=== PATIENT | male | born 2000 | race Caucasian/White ===

== ENCOUNTER 2025-03-11 07:54 | Emergency (ER) | payer OTHER, SELFPAY ==
[2025-03-11 07:54] VITALS: BP 144/70; PULSE 82; RESP 18; TEMP 36.7; O2SAT 97
--- NOTE | 2025-03-11 07:59 | ED.DENTAL ---
HPI - Dental/Oral General Chief complaint: Dental/Oral Stated complaint: dental pain Time Seen by Provider: 03/11/25 07:59 Source: patient Mode of arrival: ambulatory Limitations: no limitations History of Present Illness HPI Narrative: 24-year-old male presents to the ED with right upper dental pain with swelling of the upper jaw. No fever or chills. He has had this pain for the past 3 days. He is scheduled to see a dentist in 2 days. MD Complaint: tooth pain Location: Tooth # (5) Onset (ago): day(s) ( Three days) Duration: constant Severity: severe Relieving factors: nothing Exacerbating factors: nothing Context: history of dental caries Treatment prior to arrival: none Related Data Allergies Allergy/AdvReac Type Severity Reaction Status Date / Time No Known Allergies Allergy Verified 03/11/25 07:59 Review of Systems Review of Systems: All systems reviewed & are unremarkable except as noted in HPI and below Exam Narrative: vitals are stable. Afebrile. Const: General: no acute distress Orientation/consciousness: patient oriented x3 HENMT: Head: normal to inspection Ears: external ears normal Face/Nose/Sinus: Normal external nose present Face and sinus: normal facial exam Mouth: Yes Normal oral and palatal mucosa present Teeth and gingiva: dentition normal ( Mandible carious teeth.) and abnormal tooth and associated gingiva ( # 5 large cavity with surrounding gingivitis) Throat: posterior oropharynx normal Other: swelling of the right upper maxilla adjoining the tooth 5 Eyes: Conjunctivae: conjunctivae normal Pupils: Equal, round and reactive pupils present EOM: EOMs intact bilaterally Direct Ophthalmoscopy: no photophobia Neck: Neck: normal visual inspection, no lymphadenopathy and no meningeal signs Chest: Chest palpation & inspection: normal inspection of the chest Resp: Effort & Inspection: normal respiratory effort Auscultation: clear to auscultation bilaterally Cardio: Rate: regular rate Rhythm: regular rhythm GI: Auscultation: normal bowel sounds Other: no tenderness/rigidity / rebound. : General: Yes no CVA tenderness Back/Spine/Pelvis: Back: no CVA tenderness Skin: General skin exam: normal color Rashes: no rashes Wounds: no wounds Neuro: General: patient oriented x3, moves all extremities, no meningeal signs, no focal motor deficits and CN's II-XI intact bilaterally Cranial nerves: Yes Nystagmus not present Speech: normal speech Extrem: General: normal to inspection and no clubbing, cyanosis or edema Psych: Mental Status: mental status grossly normal Affect: normal affect Attitude: cooperative Course Course Emergency Course: Dental caries with cavitation of the right upper 1st premolar multiple of the teeth are carious and cavitated patient is scheduled to see the dentist in 2 days. Vital Signs Vital signs: Vital Signs Temperature 36.7 C 03/11/25 07:54 Pulse Rate 82 03/11/25 07:54 Respiratory Rate 18 03/11/25 07:54 Blood Pressure 144/70 H 03/11/25 07:54 Pulse Oximetry 97 03/11/25 07:54 Oxygen Delivery Room Air 03/11/25 07:54 Temperature 36.7 C 03/11/25 07:54 Pulse Rate 82 03/11/25 07:54 Respiratory Rate 18 03/11/25 07:54 Blood Pressure 144/70 H 03/11/25 07:54 Pulse Oximetry 97 03/11/25 07:54 Oxygen Delivery Room Air 03/11/25 07:54 MDM - Dental/Oral MDM Narrative Medical decision making narrative: Dental caries dental pain Differential Diagnosis Differential diagnosis: Likely dental abscess Discharge Plan Discharge Clinical Impression: Toothache, Dental caries Patient Disposition: Home Condition: Stable Instructions: Antibiotic Form, Dental Abscess (ED), Toothache (ED) Patient Language: Romanian Prescriptions: New clindamycin HCl [Cleocin HCl] 300 mg capsule 300 mg PO Q8H Qty: 20 0RF Follow-up/Referrals: Frederic Aquino MD [Primary Care Provider, Internal Medicine] Stand Alone Forms: Work/School Release IP Time of Disposition: 08:04
--- NOTE | 2025-03-11 08:08 | PC.NURSE ---
ERP states patient may be discharged after medication administration. Patient reports he is not driving and his mother will be driving him.
[2025-03-11] MEDS: HYDROcodone/acetaminophen (*CRX) 5-325 MG TABLET 1 TAB PO (08:09)
[2025-03-11 08:13] VITALS: BP 144/70; PULSE 82; RESP 18; TEMP 36.7; O2SAT 97
--- NOTE | 2025-03-11 10:08 | PC.NURSE ---
Prescription called to [facility] in [place] per patient request, he is driving to [place] and that is the pharmacy that is open along [address]. [facility] contacted to cancel prescription.
== END 2025-03-11 08:13 | disposition home or self-care (01) ==
LOC: CHSED 08:08
PROVIDERS: Emergency Provider Internal Medicine Critical Care Medicine; PCP Family Medicine
DX: K02.9 Dental caries, unspecified (principal)
CPT/HCPCS: 99283; A9270